=== PATIENT | male | born 1960 | race Caucasian/White ===

== ENCOUNTER 2017-03-06 11:36 | Outpatient (CLI) | payer SELFPAY ==
[2017-03-06 12:25] LABS: eGFR (African) 57; eGFR (Non-African) 47
== END 2017-03-06 11:40 ==
LOC: LAB 11:36
PROVIDERS: ATTEND Family Medicine
DX: E11.9 Type 2 diabetes mellitus without complications (principal)
CPT/HCPCS: 36415; 80053; 80061; 82043; 83036

== ENCOUNTER 2019-06-24 09:08 | Outpatient (CLI) | payer SELFPAY ==
[2019-06-24 09:34] LABS: A1C 6.2 % (<5.7)
[2019-06-24 10:10] LABS: HDL 38 mg/dL (>40); eGFR (Non-African) 28
== END 2019-06-24 09:13 ==
LOC: LAB 09:08
PROVIDERS: ATTEND Family Medicine
DX: E11.9 Type 2 diabetes mellitus without complications (principal); I10 Essential (primary) hypertension
CPT/HCPCS: 36415; 80053; 80061; 83036